=== PATIENT | male | born 1960 | race Two or more races ===

== ENCOUNTER 2017-10-24 13:51 | Emergency (ER) | payer MEDICARE, MEDICAID ==
[~2017-10-24] VITALS: Ht 172.7 cm; Wt 72.6 kg
[~2017-10-24 13:51] MED LIST: ACETTAB85 PO; ASPI-231 PO; B-CO-5 PO; CALC667T2 PO; CARV25TA PO
[2017-10-24 14:51] LABS: Basophils # (auto) 0 uL; Eosinophils # (auto) 0 uL; Lymphocytes # (auto) 0.5 uL; Mean Corpuscular Hgb Conc. 34.5 g/dL (32.0-36.0); Nucleated Red Blood Cells % 0.1 %
[2017-10-24 14:53] LABS: Basophils % (auto) 0.7 % (0.0-2.0); Eosinophils % (auto) 0.2 % (0.0-7.0); Hematocrit 47.2 % (41.0-53.0); Hemoglobin 16.3 g/dL (13.5-17.5); Lymphocytes % (auto) 7.3 % (10.0-50.0); Mean Corpuscular Hemoglobin 35.6 pg (28.0-32.0); Mean Corpuscular Volume 103.3 fL (80.0-100.0); Monocytes # (auto) 0.6 uL; Monocytes % (auto) 9.2 % (0.0-12.0); Neutrophils # (auto) 5.8 uL; Neutrophils % (auto) 82.6 % (37.0-80.0); Platelet Count (auto) 123 10^3/uL (140-450); Red Blood Cells 4.57 10^6/uL (4.5-5.90); White Blood Cell 7.1 10^3/uL (4.4-10.8)
[2017-10-24 15:13] LABS: Albumin 3.6 g/dL (3.4-5.0); BUN/Creatinine Ratio 4.8; Bilirubin, Total 0.7 mg/dL (0.2-1.0); Calcium 9.1 mg/dL (8.5-10.1); Potassium 4.9 mmol/L (3.5-5.1); Total Protein 8.5 g/dL (6.4-8.2)
[2017-10-24 18:37] VITALS: BP 103/51
[2017-10-25] MEDS ORDERED: DEXTROSE 50% SYRINGE 50 ML IV ONE (01:01)
== END 2017-10-24 20:34 | disposition home or self-care (01) ==
LOC: ER 13:51
DX: I12.0 Hypertensive chronic kidney disease with stage 5 chronic kidney disease or end stage renal disease (principal); N18.6 End stage renal disease; R79.89 Other specified abnormal findings of blood chemistry; Z99.2 Dependence on renal dialysis; Z79.899 Other long term (current) drug therapy; Z79.82 Long term (current) use of aspirin; Z90.49 Acquired absence of other specified parts of digestive tract
CPT/HCPCS: 36415; 71045; 74176; 80053; 82150; 83690; 83880; 84484; 85025; 93005

== ENCOUNTER 2018-12-19 05:22 | Inpatient (IN) | payer MEDICARE, MEDICAID ==
[~2018-12-19] VITALS: Ht 170.2 cm; Wt 70.7 kg
[~2018-12-19 05:22] MED LIST changes: +ACET-1603 PO; -ACETTAB85 PO
[2018-12-19 06:44] LABS: Basophils # (auto) 0.1 uL; Basophils % (auto) 1.2 % (0.0-2.0); Eosinophils # (auto) 0.2 uL; Eosinophils % (auto) 2.6 % (0.0-7.0); Hemoglobin 13.2 g/dL (13.5-17.5); Lymphocytes % (auto) 14.4 % (10.0-50.0); Mean Corpuscular Hemoglobin 30.1 pg (28.0-32.0); Mean Corpuscular Hgb Conc. 32.3 g/dL (32.0-36.0); Mean Corpuscular Volume 93.3 fL (80.0-100.0); Monocytes # (auto) 0.5 uL; Monocytes % (auto) 7.5 % (0.0-12.0); Neutrophils # (auto) 5.1 uL; Neutrophils % (auto) 74.3 % (37.0-80.0); Platelet Count (auto) 277 10^3/uL (140-450); Red Blood Cells 4.39 10^6/uL (4.5-5.90); Red Cell Distribution Width 15.3 % (11.8-14.3); White Blood Cell 6.9 10^3/uL (4.4-10.8)
[2018-12-19 06:58] LABS: Albumin 3.9 g/dL (3.4-5.0); Calcium 9.4 mg/dL (8.5-10.1); Potassium 5.3 mmol/L (3.5-5.1)
[2018-12-19 07:05] LABS: BUN/Creatinine Ratio 4.4; Bilirubin, Total 0.5 mg/dL (0.2-1.0); Total Protein 9.4 g/dL (6.4-8.2)
[2018-12-19] MEDS ORDERED: ACETAMINOPHEN 325 MG TAB PO ONE (07:15)
[2018-12-19] MEDS ORDERED: ACETAMINOPHEN 500 MG TAB PO PRN (12:15)
[2018-12-19] MEDS ORDERED: ALBUTEROL SULF 2.5 MG/0.5ML(0.5%) NEB SOLN NEB PRN (12:15)
[2018-12-19] MEDS ORDERED: MORPHINE SULF INJ 2 MG/ML SYRINGE 1ML IV PRN ×2 (12:15)
[2018-12-19] MEDS ORDERED: SODIUM ZIRCONIUM CYCL 10 GM PAK PO ONE (12:15)
[2018-12-19] MEDS ORDERED: NITROGLYCERIN 0.4 MG SL TAB SL PRN (12:15)
[2018-12-19] MEDS ORDERED: DOCUSATE SOD 100 MG CAP PO PRN (12:15)
[2018-12-19] MEDS ORDERED: IPRATROPIUM BROM 0.5 MG/2.5ML INH SOL NEB PRN (12:15)
[2018-12-19] MEDS ORDERED: ONDANSETRON HCL 4 MG/2 ML VIAL IV PRN (12:15)
[2018-12-19 13:41] VITALS: BP 147/108
[2018-12-19] MEDS ORDERED: LABETALOL HCL 5 MG/ML ML 20ML VIAL IV PRN (14:30)
[2018-12-19] MEDS ORDERED: LABETALOL HCL 5 MG/ML ML 20ML VIAL IV ONE (14:30)
--- NOTE | 2018-12-19 15:33 | NUR ---
PATIENT ARRIVED ON UNIT. TELE BOX #49 SR 90'S. PATIENT ORIENTED TO TELE UNIT, ROOM 277 BED A. THIS RN EDUCATED APPRENTICE/LINEMAN LIGHT, AND GAVE NEW GOWN, BATH SUPPLIES, AND ORAL CARE SUPPLIES. PATIENT VERBALIZED UNDERSTANDING FOR USE APPRENTICE/LINEMAN LIGHT. CARE BOARD UPDATED WITH PLAN OF CARE. RESPIRATIONS EVEN AND UNLABORED. VS WNL. WILL CONTINUE TO MONITOR.
[2018-12-19 16:11] VITALS: BP 126/87
[2018-12-19] MEDS ORDERED: CARV3.1240 PO (16:59)
[2018-12-19] MEDS ORDERED: SUCR5CHW PO (16:59)
[2018-12-19] MEDS ORDERED: ASPI325T4 PO (16:59)
[2018-12-19] MEDS ORDERED: PRO125RS PO (16:59)
[2018-12-19] MEDS ORDERED: AMOX250C3 PO (16:59)
[2018-12-19] MEDS ORDERED: ACET-1156 PO (16:59)
[2018-12-19] MEDS ORDERED: SILD50TA42 PO (16:59)
[2018-12-19] MEDS ORDERED: CLON0.2D6 PO (16:59)
[2018-12-19] MEDS ORDERED: TRAM50TA2 PO (16:59)
[2018-12-19] MEDS ORDERED: CLOP75TA41 PO (16:59)
[2018-12-19] MEDS ORDERED: OMEP20TA PO (16:59)
[2018-12-19] MEDS ORDERED: ALBUAER3 IN (16:59)
[2018-12-19] MEDS ORDERED: CINA30TA2 PO (16:59)
--- NOTE | 2018-12-19 17:02 | NUR ---
MED REC COMPLETE: EDUCATED PATIENT ON POLICY REGARDING BEDSIDE MEDICATIONS. PATIENT'S FAMILY TO TAKE MEDS HOME.
[2018-12-19] MEDS: SEVELAMER 800 MG TAB PO SCH (17:39)
--- NOTE | 2018-12-19 17:57 | NUR ---
PATIENT C/O HAVING DRY COUGH. REQUESTING ICE CHIPS. MRSA NARES SENT TO LAB.
--- NOTE | 2018-12-19 18:30 | NUR ---
CLOSING SHIFT NOTE: PATIENT RESTING IN BED. FALL PRECAUTIONS IN PLACE. PATIENT VERBALIZED UNDERSTANDING. CALL LIGHT WITHIN REACH, BED IN LOWEST LOCKED POSITION. WILL ENDORSE CARE TO NOC RN.
--- NOTE | 2018-12-19 19:02 | NUR ---
Respiratory note: ASSESSED PT FOR PRN MED NEB AT THIS TIME, PT DENIES SOB AT THIS TIME, NO RESP DISTRESS NOTED, NO TX INDICATED. PULSE OX 94% ON RA, HR 63, RR 22, BILATERAL BS CLEAR.
--- NOTE | 2018-12-19 19:16 | NUR ---
CARE ENDORSED TO REILLY CORREA.
--- NOTE | 2018-12-19 20:00 | NUR ---
Opening Shift Note Assumed care of patient, awake and alert. No S/S of distress/SOB or pain. Instructed on POC and to call for assist PRN, will continue to monitor for changes Q1hr and PRN.
[2018-12-19 21:31] VITALS: BP 147/101
[2018-12-19] MEDS: BENAZEPRIL HCL 10 MG TAB PO SCH (21:39)
[2018-12-19] MEDS: CARVEDILOL 3.125 MG TAB PO SCH (21:39)
[2018-12-20 05:40] VITALS: BP 137/95
[2018-12-20 05:54] LABS: Basophils # (auto) 0.1 uL; Basophils % (auto) 1.5 % (0.0-2.0); Eosinophils # (auto) 0.1 uL; Eosinophils % (auto) 2.3 % (0.0-7.0); Hematocrit 35.8 % (41.0-53.0); Hemoglobin 11.9 g/dL (13.5-17.5); Lymphocytes % (auto) 17.2 % (10.0-50.0); Mean Corpuscular Hemoglobin 30.6 pg (28.0-32.0); Mean Corpuscular Hgb Conc. 33.3 g/dL (32.0-36.0); Mean Corpuscular Volume 91.8 fL (80.0-100.0); Monocytes # (auto) 0.6 uL; Monocytes % (auto) 9.4 % (0.0-12.0); Neutrophils # (auto) 4.2 uL; Neutrophils % (auto) 69.6 % (37.0-80.0); Nucleated Red Blood Cells % 0.1 %; Platelet Count (auto) 245 10^3/uL (140-450); Red Cell Distribution Width 15.4 % (11.8-14.3)
[2018-12-20 06:18] LABS: BUN/Creatinine Ratio 4.7; Calcium 8.8 mg/dL (8.5-10.1); Potassium 4.8 mmol/L (3.5-5.1)
--- NOTE | 2018-12-20 06:25 | NUR ---
HOSPITALIST PAGED PATIENT HAS A CRITICAL CR. OF 11.9 THIS IS AN INCREASE FROM 10.6 PATIENT MISSED DIALYSIS YESTERDAY. PATIENT IS TO HAVE A NEPHRO CONSULT CALLED IN TODAY. WILL AWAIT CALL BACK OR ORDERS.
--- NOTE | 2018-12-20 06:51 | NUR ---
RECEIVED CALL BACK FROM HOSPITALIST HOSPITALIST MADE AWARE. HOSPITALIST WANTED TO ENSURE THAT NEPHRO CONSULT WAS CALLED IN TO SEE TODAY. NEPHRO CALLED IN AT [address] GONZALEZ. WILL ENDORSE TO VALENTE CORREA.
--- NOTE | 2018-12-20 07:10 | NUR ---
Opening Note Care of patient assumed from release manager nurse. Patient is alert and oriented x4. No signs of distress noted. Plan of care discussed with patient and he verbalizes understanding. Patient is eating breakfast comfortably. Bed in lowest position, side rails up x2, call light in reach. Will continue to monitor.
[2018-12-20] MEDS: SEVELAMER 800 MG TAB PO SCH ×3 (08:16→18:30)
[2018-12-20 09:00] VITALS: BP 131/91
[2018-12-20] MEDS: FAMOTIDINE 20 MG TAB PO SCH (09:43)
[2018-12-20] MEDS: CARVEDILOL 3.125 MG TAB PO SCH ×2 (09:43→21:33)
[2018-12-20] MEDS: BENAZEPRIL HCL 10 MG TAB PO SCH ×2 (09:44→21:33)
[2018-12-20] MEDS: AZITHROMYCIN 500MG/ 250ML 250 ML IV SCH (09:44)
[2018-12-20] MEDS: CLOPIDOGREL BISULFATE 75 MG TAB PO SCH (09:44)
[2018-12-20 13:00] VITALS: BP 133/76
[2018-12-20] MEDS ORDERED: [UNRECOGNIZED DRUG - CODE] PO (13:41)
--- NOTE | 2018-12-20 15:30 | NUR ---
Spoke with Service Desk Director/ Doris Patient added to schedule for left heart cath on 12/21/18 in the afternoon, patient is to be NPO after breakfast on 12/21.
--- NOTE | 2018-12-20 16:05 | NUR ---
Spoke with Dr. Westbrook Regarding patient being scheduled to have heart cath done tomorrow (12/21) after lunch and that dialysis will need to be performed after patient returns from procedure. Dr. Westbrook is aware and will notify muffle worker to complete dialysis in the late afternoon tomorrow.
[2018-12-20 17:00] VITALS: BP 154/100
[2018-12-20 17:25] LABS: INR 1.18 (0.9-1.15); Partial Thromboplastin Time 31.6 sec (23.64-32.05)
--- NOTE | 2018-12-20 18:43 | NUR ---
Patient Rounds Patient resting in bed, talking on the phone. No s/s of distress or SOB, no pain noted or reported at this time. Will endorse care to security shift manager RN.
--- NOTE | 2018-12-20 19:13 | NUR ---
Respiratory note: ASSESSMENT FOR PRN MED NEB TX. HR 100, SPO2 99% ON ROOM AIR, RR 17, BS DIMINISHED. PT AWARE TO HAVE RT PAGED IF MED NE B TX IS NEEDED. MED NEB TX NOT INDICATED AT THIS TIME, WILL CONTINUE TO MONITOR.
[2018-12-20 20:00] VITALS: BP 129/91
--- NOTE | 2018-12-20 20:30 | NUR ---
per bus monitor patient had an episode of PVC with bigemeny. Upon entering room patient is walking and coughing. Patient denies any symptoms of pain or SOB, Denies any other symptoms. VS B/P 129/91, O2 saturation 97% HR 101, RR 20. Addendum: 12/20/18 at 2057 by LETHA GOODWIN RN RN Patient has been running SR 101 after episode according to network operations technician.l
[2018-12-20] MEDS: HYDROcodone-ACET 5/325MG TAB PO PRN (21:34)
[2018-12-20 22:00] VITALS: BP 129/91
[2018-12-21] MEDS: HYDROcodone-ACET 5/325MG TAB PO PRN ×2 (03:56→18:42)
[2018-12-21 05:00] VITALS: BP 153/108
[2018-12-21] MEDS ORDERED: SODIUM CHL 0.9% 1000 ML BAG XX ONE (07:00)
--- NOTE | 2018-12-21 07:25 | NUR ---
Opening Shift Note Assumed care of patient, awake and alert. No S/S of distress/SOB or pain. Instructed on POC and to call for assist PRN, bed in locked and lowest position and call light within reach. Will continue to monitor for changes Q1hr and PRN.
--- NOTE | 2018-12-21 07:30 | NUR ---
ENDORSED CARE TO DAYSHIFT RN. ALL QUESTIONS AND CONCERNS ANSWERED
[2018-12-21 08:00] VITALS: BP 134/97
[2018-12-21] MEDS: SEVELAMER 800 MG TAB PO SCH ×3 (08:00→18:35)
[2018-12-21 09:00] VITALS: BP 134/97
[2018-12-21] MEDS: FAMOTIDINE 20 MG TAB PO SCH (09:45)
[2018-12-21] MEDS: ASPirin 81 mg TAB PO SCH (09:45)
[2018-12-21] MEDS: BENAZEPRIL HCL 10 MG TAB PO SCH ×2 (09:46→21:37)
[2018-12-21] MEDS: CARVEDILOL 3.125 MG TAB PO SCH ×2 (09:47→21:36)
[2018-12-21] MEDS: CLOPIDOGREL BISULFATE 75 MG TAB PO SCH (09:48)
[2018-12-21] MEDS: AZITHROMYCIN 500MG/ 250ML 250 ML IV SCH (09:48)
--- NOTE | 2018-12-21 11:26 | NUR ---
Dr. Cholo Thornton bedside with patient discussing plan of care.
--- NOTE | 2018-12-21 11:59 | NUR ---
Patient brought down to Side Panel Padder
--- NOTE | 2018-12-21 12:00 | NUR ---
Respiratory note: PATIENT TAKEN DOWN TO INVOICE MACHINE OPERATOR, UNABLE TO OBTAIN VITAL SIGNS. WILL TRY AGAIN LATER.
[2018-12-21] MEDS ORDERED: IOHEXOL 350 MG/ML 100ML IJ ONE ×2 (12:15→12:42)
[2018-12-21] MEDS ORDERED: LIDOCAINE 2%HCL (LOCAL ANESTH.) INJ 20ML MDV ONE (12:15)
--- NOTE | 2018-12-21 12:24 | NUR ---
Nutrition Assessment Notes please see attached link for complete assessment Est. Needs ABW 81 [id number] kcal (25-27 kcal/kgBW), 97-113 gms pro (1.2-1.4 gms/kgBW r/t HD). Will continue to monitor pertinent labs and reassess nutrient need prn Addendum: 12/21/18 at [address] Amended: Links added.
[2018-12-21] MEDS ORDERED: fentaNYL CITRATE 100 MCG/2 ML VL ONE (12:40)
[2018-12-21] MEDS ORDERED: SODIUM CHL 0.9% 0 ML ONE (12:40)
[2018-12-21] MEDS ORDERED: MIDAZOLAM HCL 1MG/1ML-2 ML VIAL ONE (12:40)
[2018-12-21] MEDS ORDERED: ANGIOMAX 250 MG VIAL IV ONE (12:40)
--- NOTE | 2018-12-21 14:18 | NUR ---
Patient returned from manager lab. Patient laying in bed, flat, R. groin bandage is clean, dry and intact. Vital signs 129/99, 90 bpm, 18 RR, 97.7 and 95% on 2 L. NC. Will continue to monitor patient.
[2018-12-21 14:22] VITALS: BP 129/99
--- NOTE | 2018-12-21 15:55 | NUR ---
Dr. Alamo bedside with patient.
--- NOTE | 2018-12-21 16:40 | NUR ---
Dialysis nurse in patient room dialyzing patient
[2018-12-21 16:58] VITALS: BP 130/95
--- NOTE | 2018-12-21 17:41 | NUR ---
assessment Per consult patient does not have a PCP. Tanya Jules has seen patient for PCP. Addendum: 12/21/18 at 1742 by Tanya Hampton Amended: Links added.
--- NOTE | 2018-12-21 19:25 | NUR ---
Opening Shift Note Assumed care of patient, awake and alert. No S/S of distress/SOB or pain. Dialysis nurse at bedside. per dialysis nurse 3L removed. B/P 147/97, HR 98. Instructed on POC and to call for assist PRN, will continue to monitor for changes Q1hr and PRN.
--- NOTE | 2018-12-21 19:30 | NUR ---
POST DIALYSIS WEIGHT POST DIALYSIS WEIGHT 76.3KG. PREDIALYSIS WEIGHT NOT AVAILABLE PER DIALYSIS NURSE SHE DID NOT GET PATIENT WEIGHT.
--- NOTE | 2018-12-21 20:00 | NUR ---
DRESSING IS CLEAN DRY AND INTACT. NO SIGNS OF REDNESS, AREA FEELS SOFT. PATIENT DENIES PAIN OR SOB. PATIENT TELEMONITOR CAME OFF, REAPPLIED TELEMONITOR.
--- NOTE | 2018-12-21 20:19 | NUR ---
TELEMONITOR TECH CALLED THAT PATIENT IS RUNNING TACHYCARDIA IN THE 130. PATIENT HAS HISTORY OF RUNNING TACHYCARDIA DR BORRERO AWARE. UPON ENTERING ROOM PATIENT IS LAUGHING AND TALKING TO FAMILY MEMBERS ON THE PHONE. DENIES DISTRESS/ SOB OR PAIN. WILL CONTINUE TO MONITOR PATIENT. BED IN LOW POSITION AND CALL LIGHT WITHIN REACH.
[2018-12-21 22:00] VITALS: BP 136/96
--- NOTE | 2018-12-21 23:33 | NUR ---
DRESSING IS C/D/I. AREA FEELS SOFT. RECENT VITALS 132/95 B/P, HR 108, RR 20, O2 SATURATION VIA ROOM AIR 99%. PATIENTS DENIES ANY PAIN OR SOB. PEDAL PULSES 2 PULSE BILATERAL. < 3 CAPILLARY REFILL.
--- NOTE | 2018-12-22 04:50 | NUR ---
dressing is clean dry and intact, mild bruising around area. area feels soft. 2 + pedal pulses. VS b/p 125/90 HR 115, 02 saturation via room air 96%, patient denies pain / sob.
[2018-12-22 05:40] VITALS: BP 123/87
--- NOTE | 2018-12-22 06:35 | NUR ---
dressing is clean dry and intact, mild bruising around area. area feels soft. 2 + pedal pulses.
--- NOTE | 2018-12-22 07:20 | NUR ---
REPORT GIVEN AND ENDORSED CARE TO DAYSHIFT RN. ALL QUESTIONS AND CONCERNS ANSWERED. INFORMED RN PATIENT DRESSING IS C/D/I, AREA IS SOFT.
--- NOTE | 2018-12-22 07:45 | NUR ---
Morning note Assumed care of patient, awake and alert. No S/S of distress/SOB or pain. Bed in lowest position, breaks locked, side rails up x2, call light with in reach. Instructed on POC and to call for assist PRN, will continue to monitor for changes Q1hr and PRN.
[2018-12-22] MEDS: SEVELAMER 800 MG TAB PO SCH ×3 (08:24→17:50)
[2018-12-22 09:00] VITALS: BP 139/89
[2018-12-22] MEDS: AZITHROMYCIN 500MG/ 250ML 250 ML IV SCH (10:00)
[2018-12-22] MEDS: CLOPIDOGREL BISULFATE 75 MG TAB PO SCH (10:30)
[2018-12-22] MEDS: FAMOTIDINE 20 MG TAB PO SCH (10:30)
[2018-12-22] MEDS: CARVEDILOL 3.125 MG TAB PO SCH ×2 (10:30→22:09)
[2018-12-22] MEDS: ASPirin 81 mg TAB PO SCH (10:31)
[2018-12-22] MEDS: BENAZEPRIL HCL 10 MG TAB PO SCH ×2 (10:31→22:10)
[2018-12-22 10:46] VITALS: BP 128/66
[2018-12-22] MEDS: HYDROcodone-ACET 5/325MG TAB PO PRN (12:13)
[2018-12-22 13:00] VITALS: BP 124/78
--- NOTE | 2018-12-22 15:20 | NUR ---
ASSESSED PT FOR THE REQUIREMENT OF MED NEB PRN TX. PT ON RA WITH CLEAR BS, SPO2 97%, HR 68, RR 16. NO DISTRESS NOTED. MED NEB NOT INDICATED. WILL CONTINUE TO MONITOR PT.
[2018-12-22 16:48] VITALS: BP 125/82
--- NOTE | 2018-12-22 19:15 | NUR ---
Endorsed care to NOC MADELINE Mcduffie. Patient respiration even and unlabored. No s/s of distress noted. Bed in lowest position breaks locked side rails up x2.
--- NOTE | 2018-12-22 19:40 | NUR ---
Opening Shift Note Assumed care of patient, awake and alert and oriented x4. No S/S of distress/SOB or pain. On room air and ambulatory. Dressing to Rt groin CDI. Bed in lowest locked position, side rails up x2, call light within reach. Instructed on POC and to call for assist PRN, will continue to monitor for changes Q1hr and PRN.
[2018-12-22 20:00] VITALS: BP 121/88
--- NOTE | 2018-12-22 20:40 | NUR ---
Respiratory note: PT ASSESSED FOR PRN MED NEB TX. HR 89, RR 14, SPO2 99% ON RA. NO SIGNS OF ANY RESPIRATORY DISTRESS NOTED. ADVISED PT TO CALL IF TX IS NEEDED. RT NAME AND PAGER NUMBER WRITTEN ON PT'S BOARD.
--- NOTE | 2018-12-23 07:30 | NUR ---
Opening Shift Note Assumed care of patient, awake and alert. No S/S of distress/SOB or pain. Instructed on POC and to call for assist PRN, Call light within, will continue to monitor for changes Q1hr and PRN.
[2018-12-23 08:00] VITALS: BP 127/78
[2018-12-23 09:00] VITALS: BP 127/78
--- NOTE | 2018-12-23 09:17 | NUR ---
AT BEDSIDE DR Florin HOFF AT BEDSIDE, DISCUSSING POC WITH PT, CONT CARE
[2018-12-23] MEDS: SEVELAMER 800 MG TAB PO SCH ×3 (09:18→17:28)
[2018-12-23] MEDS: ASPirin 81 mg TAB PO SCH (09:19)
[2018-12-23] MEDS: CLOPIDOGREL BISULFATE 75 MG TAB PO SCH (09:19)
[2018-12-23] MEDS: FAMOTIDINE 20 MG TAB PO SCH (09:19)
[2018-12-23] MEDS: BENAZEPRIL HCL 10 MG TAB PO SCH ×2 (09:20→22:19)
[2018-12-23] MEDS: CARVEDILOL 3.125 MG TAB PO SCH ×2 (09:20→22:18)
--- NOTE | 2018-12-23 09:38 | NUR ---
Respiratory note: PT ASSESSED FOR PRN MED NEB TX, NO TX DESIRED NOR INDICATED AT THIS TIME. PT DENIES SOB OR DIFF BREATHING, NO DISTRESS NOTED. HR 90 RR 18 SPO2 97% ON RA. PT AND RN AWARE TO HAVE RT PAGED IF NEEDED.
[2018-12-23] MEDS: AZITHROMYCIN 500MG/ 250ML 250 ML IV SCH (10:00)
[2018-12-23] MEDS: guaiFENesin 200 MG/10 ML UD GT PRN ×2 (10:22→15:51)
[2018-12-23 13:00] VITALS: BP 124/94
[2018-12-23 17:07] VITALS: BP 126/87
--- NOTE | 2018-12-23 17:38 | NUR ---
MD COKER (SWIMMING COACH) ESPERANZA RETURNED CALL, MADE OF AWARE OF PT C/O COUGH NOT RELIEVED BY ROBITUSSIN 200ML, NEW ORDERS RECEIVED FOR CXR, CALL PETE BACK WITH RESULTS FOR FURTHER ORDERS, CONT CARE
[2018-12-23] MEDS: HYDROcodone-ACET 5/325MG TAB PO PRN (17:41)
[2018-12-23] MEDS ORDERED: NITROGLYCERIN 0.2MG/HR TOPICAL PATCH TD ONE (18:45)
--- NOTE | 2018-12-23 18:50 | NUR ---
CXR RESULTS CALLED IN CALLED AND INFORMED (EXPRESSIVE MUSIC THERAPIST) ESPERANZA, NEW ORDERS RECEIVED FOR NITRO 0.2MG PATCH AND ROBITUSSIN WITH CODEINE 10ML Q6 HRS PRN, RBO, CONT CARE
[2018-12-23] MEDS: guaiFENesin-CODEINE Liq 5 ML UD PO PRN (19:13)
--- NOTE | 2018-12-23 19:40 | NUR ---
Opening Shift Note Assumed care of patient, awake, alert and oriented x4. On room air and ambulatory. No S/S of distress/SOB or pain. Bed in lowest locked position, side rails up x2, call light within reach. Instructed on POC and to call for assist PRN, will continue to monitor for changes Q1hr and PRN.
[2018-12-23 20:00] VITALS: BP 134/98
--- NOTE | 2018-12-23 20:10 | NUR ---
Respiratory note: PT ASSESSED FOR PRN MED NEB TX. HR 70, RR 18, SPO2 96% ON RA. NO SIGNS OF ANY RESPIRATORY DISTRESS NOTED. ADVISED PT TO CALL IF TX IS NEEDED. RT NAME AND PAGER NUMBER WRITTEN ON BOARD.
[2018-12-23 22:00] VITALS: BP 136/98
[2018-12-24] VITALS (7 sets, daily range): BP systolic 112–145; BP diastolic 68–96
[2018-12-24] MEDS: guaiFENesin-CODEINE Liq 5 ML UD PO PRN ×2 (05:20→17:14)
[2018-12-24] MEDS: HYDROcodone-ACET 5/325MG TAB PO PRN (05:36)
[2018-12-24] MEDS ORDERED: SODIUM CHL 0.9% 1000 ML BAG XX ONE (07:00)
[2018-12-24] MEDS ORDERED: LEVOTHYROXINE SODIUM 112 MCG TAB PO SCH (07:00)
--- NOTE | 2018-12-24 07:30 | NUR ---
Opening Shift Note Assumed care of patient, awake and alert. No S/S of distress/SOB or pain. Instructed on POC and to call for assist PRN, will continue to monitor for changes Q1hr and PRN. Fall risk per protocol in place.
[2018-12-24] MEDS: SEVELAMER 800 MG TAB PO SCH ×3 (08:00→17:15)
--- NOTE | 2018-12-24 09:01 | NUR ---
AICD Called microbiology lab analyst to check procedure time for patient however, they said patient was not on the list. I called Dr. Alamo to ask if there were any changes with the procedure. Dr. Alamo states, patient had refused procedure. Updated patient, Patient states "it could have been a miscommunication error and states he would like procedure this morning." Waiting for orders from Dr. Alamo.
--- NOTE | 2018-12-24 09:18 | NUR ---
Update on AICD Patient notified AICD will be done tomorrow per Dr. Alamo orders. Patient states understanding. Will advance patient to renal diet and will place him on NPO diet after midnight for procedure tomorrow.
--- NOTE | 2018-12-24 09:25 | NUR ---
Respiratory note: ASSESSED PT FOR PRN MEDNEB TX. HR 88, RR 18, POX 95% ON ROOM AIR. BREATH SOUNDS CLEAR THROUGHOUT. PT DENIES ANY SOB. NO S/S OF RESPIRATORY DISTRESS NOTED AT THIS TIME. MEDNEB TX NOT INDICATED. ADVISED PT TO CALL FOR RT IF NEEDED.
--- NOTE | 2018-12-24 09:27 | NUR ---
Dialysis senior electrical estimator Aldwin at bedside to begin Dialysis.
--- NOTE | 2018-12-24 09:40 | NUR ---
Dr. Jasmeet Alamo at Bedside, Notified patient AICD will be done tomorrow around 1300. Procedure was explained along with risks and benefits. Patient states understanding. . instructed this nurse to notify Tax Collection Coordinator for patient to be added to afternoon schedule.
[2018-12-24 09:57] LABS: INR 1.13 (0.9-1.15); Partial Thromboplastin Time 31.3 sec (23.64-32.05)
[2018-12-24] MEDS: CLOPIDOGREL BISULFATE 75 MG TAB PO SCH ×2 (10:00→17:16)
[2018-12-24] MEDS: CARVEDILOL 3.125 MG TAB PO SCH ×3 (10:00→21:03)
[2018-12-24] MEDS: BENAZEPRIL HCL 10 MG TAB PO SCH ×3 (10:00→21:03)
[2018-12-24] MEDS: FAMOTIDINE 20 MG TAB PO SCH ×2 (10:00→17:16)
[2018-12-24] MEDS: ASPirin 81 mg TAB PO SCH ×2 (10:00→17:15)
[2018-12-24] MEDS ORDERED: LISINOPRIL 20 MG TAB PO SCH (10:00)
--- NOTE | 2018-12-24 10:00 | NUR ---
DIALYSIS Dialysis nurse Alfredito given heparin [id number] Units vial to be administered per dialysis orders.
--- NOTE | 2018-12-24 11:15 | NUR ---
at Bedside Dr. Thornton at beside, discussed plan of care with patient. If procedure goes well tomorrow, then expected discharge day will be Monday per Dr. Thornton.
--- NOTE | 2018-12-24 12:17 | NUR ---
Nutrition Follow-up Notes: Wt.: 76.7 kg Pt was sleeping with no family by bedside HD going on. per records pt to have AICD tegan. per records pt s/p hearth cath. pt with no distress noted currently on renal std diet with > 75% x 5 per RN doc Est. Needs ABW 81 [id number] kcal (25-27 kcal/kgBW), 97-113 gms pro (1.2-1.4 gms/kgBW r/t HD). Will continue to monitor pertinent labs and reassess nutrient need prn Labs: BUN 56 H, CREAT 1.9 H, Skin: Edgar scale 23 low risk, ecchymosis on groin per gum worker. GI: Pt has no BM reported per gum worker. PES: Altered nutrition related lab values r/t current/chronic medical condition aeb elev RFT Decreased nutrient needs r/t adiposity aeb pt`s high BMI of 33.4 kgm2 Will continue to monitor PO intake, skin status, pertinent labs and weight trend. F/u in 3-5 days. Rec.: 1) refer to [employer] dietitian on DC. 2) continue current plan of care
--- NOTE | 2018-12-24 17:30 | NUR ---
FAMILY AT BEDSIDE NO DISTRESS NOTED AT THIS TIME, CONT CARE
--- NOTE | 2018-12-24 19:45 | NUR ---
RECEIVED PATIENT IN BED, AAOX4. NO DISTRESS NOTED. INTRODUCED MYSELF TO THE PATIENT. ORIENTATION GIVEN. MILD GENERALIZED WEAKNESS NOTED. DENIES ANY SOB. DENIES ANY PAIN WELL. POCS DISCUSSED WITH PATIENT AND SHOWED UNDERSTANDING. BED KEPT ON LOWEST POSITION. SIDE RAILS UP. CALL LIGHT/TABLE IN REACH. KEPT COMFORTABLE.
[2018-12-25] VITALS (7 sets, daily range): BP systolic 113–169; BP diastolic 57–92
--- NOTE | 2018-12-25 00:32 | NUR ---
Respiratory note: PT SEEN AND ASSESSED FOR PRN MED NEB TX AT 0032. TX NOT INDICATED AT THIS TIME. PT DISPLAYING NO SIGNS OF DISTRESS. PT WAS SLEEPING WHEN ENTERING THE ROOM. HR 89 RR 16 POX 97% ON ROOM AIR.
--- NOTE | 2018-12-25 01:00 | NUR ---
ATTEMPTED CHG BY KEY PUNCH TEACHER, BUT PATIENT GOT MAD AND HE SAID, THERE IS NO POINT OF GETTING THE CHG DONE IF THE SURGERY HAPPENS TOMORROW IN THE AFTERNOON. EXPLAINED TO PATIENT THAT WE DO THE NIGHT BEFORE AND FOUR HOURS BEFORE, BUT STILL REFUSED. NOTED.
--- NOTE | 2018-12-25 06:41 | NUR ---
ON BED, AWAKE. STABLE. NO DISTRESS NOTED. FOR MORE CARE AND MANAGEMENT.
[2018-12-25] MEDS: SEVELAMER 800 MG TAB PO SCH ×3 (08:00→17:34)
--- NOTE | 2018-12-25 08:00 | NUR ---
ASSUMED CARE OF PT. AAOX4, BREATHING EVEN, NONLABORED, S1, S2. FISTULA TO LEFT UA + THRILL, + BRUIT. IV TO RIGHT FA 22G SL. NPO PRIOR AICD. DENIED OF PAIN NOR ANY DISCOMFORT AT THIS TIME. BED LOCKED IN THE LOWEST POSITION, CALL LIGHT WITHIN EASY REACH, WILL CONTINUE CARE.
[2018-12-25] MEDS: BENAZEPRIL HCL 10 MG TAB PO SCH ×2 (09:41→21:15)
[2018-12-25] MEDS: FAMOTIDINE 20 MG TAB PO SCH (09:42)
[2018-12-25] MEDS: CARVEDILOL 3.125 MG TAB PO SCH ×2 (09:42→21:15)
[2018-12-25] MEDS: ASPirin 81 mg TAB PO SCH (09:45)
--- NOTE | 2018-12-25 10:26 | NUR ---
DR. HOFF AT BEDSIDE. POC DISCUSSED WITH PT. NEW ORDER OBTAINED BMP. WILL CARRY OUT ORDER.
[2018-12-25 11:32] LABS: BUN/Creatinine Ratio 3.9; Calcium 9.5 mg/dL (8.5-10.1); Potassium 4.5 mmol/L (3.5-5.1)
[2018-12-25] MEDS ORDERED: HEPARIN IN NS 1000Units/500mL 0 ML ONE (11:50)
[2018-12-25] MEDS ORDERED: LIDOCAINE 2%HCL (LOCAL ANESTH.) INJ 20ML MDV ONE ×2 (11:50→12:48)
--- NOTE | 2018-12-25 11:55 | NUR ---
PT OFF UNIT TO MANAGEMENT PLANNER FOR AICD VIA BED. VS WNL. NO ACUTE DISTRESS NOTED AT DEPARTURE.
[2018-12-25] MEDS ORDERED: VANCOMYCIN HCL 1000 MG VL ONE (12:04)
[2018-12-25] MEDS ORDERED: fentaNYL CITRATE 100 MCG/2 ML VL ONE ×2 (12:04→12:48)
[2018-12-25] MEDS ORDERED: ceFAZolin 1GM/50ML 50 ML IV ONE (12:04)
[2018-12-25] MEDS ORDERED: MIDAZOLAM HCL 1MG/1ML-2 ML VIAL ONE ×2 (12:04→12:48)
[2018-12-25] MEDS ORDERED: VANCOMYCIN 1GM/250ML 250 ML IV ONE (12:05)
[2018-12-25] MEDS ORDERED: FUROSEMIDE 20 MG/2 ML VIAL ONE (13:10)
[2018-12-25] MEDS ORDERED: GELATIN 1 SPONGE SIZE 50 TOP ONE ×2 (13:20→13:21)
[2018-12-25] MEDS ORDERED: GELATIN 1 SPONGE SIZE 100 TOP ONE (13:20)
--- NOTE | 2018-12-25 15:23 | NUR ---
PT BACK TO ROOM, S/P AICD, DRESSING TO LEFT UPPER CHEST CLEAN/DRY/INTACT, LEFT ARM IN SLING. PT IS EDUCATED NOT TO PULL OR REACH WITH LEFT ARM, NO ROLLING SIDE TO SIDE, VERBALIZED UNDERSTANDING. FAMILY AT BEDSIDE. VS: 98.2, 18, 117/92, 87, 95% ON RA. WILL CONTINUE TO MONITOR.
--- NOTE | 2018-12-25 16:05 | NUR ---
RESTING IN BED, DRESSING TO LEFT UPPER CHEST CLEAN/DRY/INTACT, NO BLEEDING NOTED. LEFT ARM IN SLING. ICE PACK TO LEFT UPPER CHEST. PT DENIED OF ANY DISCOMFORT AT THIS TIME. VS: 98.2, 94, 116/97, 18, 98% ON 2L VIA N/C 0. WILL CONTINUE TO MONITOR.
--- NOTE | 2018-12-25 19:45 | NUR ---
RECEIVED PATIENT IN BED, AAOX4. NO DISTRESS NOTED. INTRODUCED MYSELF TO THE PATIENT. ORIENTATION GIVEN. MILD GENERALIZED WEAKNESS NOTED. DENIES ANY SOB. DENIES ANY PAIN WELL. PATIENT HAS A LEFT ARM SLING. LEFT CHEST DRESSING NOTED WHICH IS ALL CLEAN, DRY AND INTACT. ICE PACK APPLIED ON THE INCISION. POCS DISCUSSED WITH PATIENT AND SHOWED UNDERSTANDING. BED KEPT ON LOWEST POSITION. SIDE RAILS UP. CALL LIGHT/TABLE IN REACH. KEPT COMFORTABLE.
[2018-12-25] MEDS: VANCOMYCIN 1GM/250ML 250 ML IV SCH (21:16)
[2018-12-25] MEDS: HYDROcodone-ACET 5/325MG TAB PO PRN (21:36)
[2018-12-26 04:57] VITALS: BP 132/94
--- NOTE | 2018-12-26 06:49 | NUR ---
ON BED, AWAKE. STABLE. NO DISTRESS NOTED. FOR MORE CARE AND MANAGEMENT.
--- NOTE | 2018-12-26 07:30 | NUR ---
Opening Shift Note RECEIVED REPORT FROM NOC RN. Assumed care of patient, awake and alert. No S/S of distress/SOB or pain. BED IN LOWEST, LOCKED POSITION WITH SIDERAILS UP x2 AND CALL LIGHT WITHIN REACH. Instructed on POC and to call for assist PRN, will continue to monitor for changes Q1hr and PRN.
[2018-12-26 09:00] VITALS: BP 125/94
[2018-12-26] MEDS: SEVELAMER 800 MG TAB PO SCH ×3 (09:01→18:12)
[2018-12-26] MEDS: BENAZEPRIL HCL 10 MG TAB PO SCH (10:00)
[2018-12-26] MEDS: CLOPIDOGREL BISULFATE 75 MG TAB PO SCH (10:00)
[2018-12-26] MEDS: CARVEDILOL 3.125 MG TAB PO SCH (10:00)
[2018-12-26] MEDS: ASPirin 81 mg TAB PO SCH (10:00)
[2018-12-26] MEDS: FAMOTIDINE 20 MG TAB PO SCH (10:00)
[2018-12-26] MEDS: VANCOMYCIN 1GM/250ML 250 ML IV SCH (10:00)
[2018-12-26 12:23] VITALS: BP 128/71
[2018-12-26 13:00] VITALS: BP 141/83
[2018-12-26 17:14] VITALS: BP 130/87
--- NOTE | 2018-12-26 18:00 | NUR ---
PATIENT LEFT FLOOR WITHOUT INFORMING STAFF. TELE BOX HAD ALREADY BEEN REMOVED AND SENT BACK TO ICU. IV REMAINED IN PLACE. [facility]S DEPARTMENT NOTIFIED BY LI CHANGE BOOTH ATTENDANT.
[2018-12-26 19:01] VITALS: BP 137/82
== END 2018-12-26 18:15 | disposition home or self-care (01) | DRG 222 ==
LOC: ER 05:22 → TELE 05:23 → TELE-WESTW 15:37
PROVIDERS: ADMIT Nurse Practitioner Acute Care; ATTEND Family Medicine
PROC: 4A023N7 Measurement of Cardiac Sampling and Pressure, Left Heart, Percutaneous Approach (ICD-10-PCS; 2018-12-21)
PROC: 5A1D70Z Performance of Urinary Filtration, Intermittent, Less than 6 Hours Per Day (ICD-10-PCS; 2018-12-21)
PROC: B2131ZZ Fluoroscopy of Multiple Coronary Artery Bypass Grafts using Low Osmolar Contrast (ICD-10-PCS; 2018-12-21)
PROC: B2181ZZ Fluoroscopy of Left Internal Mammary Bypass Graft using Low Osmolar Contrast (ICD-10-PCS; 2018-12-21)
PROC: B2151ZZ Fluoroscopy of Left Heart using Low Osmolar Contrast (ICD-10-PCS; 2018-12-21)
PROC: 5A1D70Z Performance of Urinary Filtration, Intermittent, Less than 6 Hours Per Day (ICD-10-PCS; 2018-12-24)
PROC: 0JH608Z Insertion of Defibrillator Generator into Chest Subcutaneous Tissue and Fascia, Open Approach (ICD-10-PCS; principal; 2018-12-25)
PROC: 02HK3KZ Insertion of Defibrillator Lead into Right Ventricle, Percutaneous Approach (ICD-10-PCS; 2018-12-25)
PROC: 02H63KZ Insertion of Defibrillator Lead into Right Atrium, Percutaneous Approach (ICD-10-PCS; 2018-12-25)
PROC: 5A1D70Z Performance of Urinary Filtration, Intermittent, Less than 6 Hours Per Day (ICD-10-PCS; 2018-12-26)
DX: I13.2 Hypertensive heart and chronic kidney disease with heart failure and with stage 5 chronic kidney disease, or end stage renal disease (principal); I50.43 Acute on chronic combined systolic (congestive) and diastolic (congestive) heart failure; N18.6 End stage renal disease; N25.81 Secondary hyperparathyroidism of renal origin; J20.9 Acute bronchitis, unspecified; E87.5 Hyperkalemia; I25.10 Atherosclerotic heart disease of native coronary artery without angina pectoris; R06.03 Acute respiratory distress; D63.8 Anemia in other chronic diseases classified elsewhere; I42.0 Dilated cardiomyopathy; Z79.02 Long term (current) use of antithrombotics/antiplatelets; Z79.899 Other long term (current) drug therapy; Z95.1 Presence of aortocoronary bypass graft; Z99.2 Dependence on renal dialysis; Z90.49 Acquired absence of other specified parts of digestive tract; Z79.82 Long term (current) use of aspirin
CPT/HCPCS: 33249; 36415; 71045; 80048; 80053; 83880; 84484; 85025; 85610; 85730; 87081; 90935; 93005; 93306; 93455; 96374; 99152; 99153; G0378; J0690; J1642; J2250

== ENCOUNTER 2019-01-02 15:58 | Inpatient (IN) | payer MEDICARE, MEDICAID ==
[~2019-01-02] VITALS: Ht 170.2 cm; Wt 75.0 kg
[~2019-01-02 15:58] MED LIST changes: +ACET-1156 PO; +ALBUAER3 IN; +AMOX250C3 PO; +CARV3.1240 PO; +CINA30TA2 PO; +CLON0.2D6 PO; +CLOP75TA41 PO; +OMEP20TA PO; +PRO125RS PO; +SILD50TA42 PO; +SUCR5CHW PO; +TRAM50TA2 PO; +[UNRECOGNIZED DRUG - CODE] PO
[2019-01-02 17:26] LABS: Basophils # (auto) 0.1 uL; Basophils % (auto) 1.8 % (0.0-2.0); Eosinophils # (auto) 0.1 uL; Eosinophils % (auto) 1.7 % (0.0-7.0); Hemoglobin 12.7 g/dL (13.5-17.5); Lymphocytes # (auto) 0.7 uL; Lymphocytes % (auto) 9.1 % (10.0-50.0); Mean Corpuscular Hemoglobin 30.1 pg (28.0-32.0); Mean Corpuscular Hgb Conc. 32.5 g/dL (32.0-36.0); Mean Corpuscular Volume 92.5 fL (80.0-100.0); Monocytes # (auto) 0.6 uL; Monocytes % (auto) 8.4 % (0.0-12.0); Neutrophils # (auto) 6.1 uL; Nucleated Red Blood Cells % 0.1 %; Platelet Count (auto) 304 10^3/uL (140-450); Red Blood Cells 4.21 10^6/uL (4.5-5.90); Red Cell Distribution Width 15.8 % (11.8-14.3); White Blood Cell 7.8 10^3/uL (4.4-10.8)
[2019-01-02 17:43] LABS: Alanine Aminotransferase < 6 U/L (16-61); Albumin 3.7 g/dL (3.4-5.0); Anion Gap 14 (5-15); Aspartate Aminotransferase 16 U/L (15-37); BUN/Creatinine Ratio 4.8; Blood Urea Nitrogen 49 mg/dL (7-18); Calcium 9.5 mg/dL (8.5-10.1); Carbon Dioxide 26 mmol/L (21-32); Chloride 92 mmol/L (98-107); GFR African American 7 mL/min; GFR Non-African American 6 mL/min; Glucose 90 mg/dL (74-106); Magnesium 2.6 mg/dL (1.6-2.6); Potassium 5.3 mmol/L (3.5-5.1); Sodium 132 mmol/L (136-145)
[2019-01-02 17:44] LABS: INR 1.16 (0.9-1.15)
[2019-01-02 17:47] LABS: Alkaline Phosphatase 99 U/L (45-117); Bilirubin, Total 0.7 mg/dL (0.2-1.0); Total Protein 8.7 g/dL (6.4-8.2)
[2019-01-02] MEDS ORDERED: FUROSEMIDE 40 MG/4 ML VIAL IV ONE (20:45)
[2019-01-02] MEDS ORDERED: TEMAZEPAM 15 MG CAP PO ONE (23:45)
[2019-01-03] MEDS ORDERED: cloNIDine HCL 0.1 MG TAB PO ONE (01:15)
[2019-01-03] MEDS ORDERED: ACETAMINOPHEN 325 MG TAB PO PRN (03:30)
[2019-01-03] MEDS ORDERED: cloNIDine HCL 0.1 MG TAB PO PRN (03:30)
[2019-01-03] MEDS ORDERED: TEMAZEPAM 15 MG CAP PO PRN (03:30)
[2019-01-03] MEDS ORDERED: DILTIAZEM HCL 25 MG/5 ML VIAL IV ONE (03:30)
[2019-01-03] MEDS ORDERED: ALBUTEROL SULF 2.5 MG/0.5ML(0.5%) NEB SOLN NEB PRN (03:30)
[2019-01-03] MEDS ORDERED: ONDANSETRON HCL 4 MG/2 ML VIAL IV PRN (03:30)
[2019-01-03] MEDS ORDERED: MORPHINE SULF INJ 2 MG/ML SYRINGE 1ML IV PRN (04:15)
[2019-01-03] MEDS ORDERED: NITROGLYCERIN 0.4 MG SL TAB SL PRN (04:15)
--- NOTE | 2019-01-03 07:49 | NUR ---
Opening Note Assumed pt care from [facility] nurse. Pt is a/ox4 with no s/s of distress or SOB. Pt is currently sitting upright in bed with a mild complaint of SOB. Discussed POC with pt; pt verbalized understanding. Safety measures maintained with call light within reach, bed in lowest position and side rails up. Will continue to monitor for changes q1hr and prn.
[2019-01-03] MEDS: CALCIUM ACETATE 667 MG CAP PO SCH ×3 (08:00→18:00)
--- NOTE | 2019-01-03 08:55 | NUR ---
Patient C/O Being NPO Pt is "frustrated" that he is NPO except medications. Explained to pt the reasoning for being NPO given his pending cardio consult and typical tests and procedures that come with the consultation. Pt still is frustrated but "understands". Will continue to monitor.
[2019-01-03 09:00] VITALS: BP 134/97
[2019-01-03] MEDS: CARVEDILOL 12.5 MG TAB PO SCH ×2 (09:23→21:32)
[2019-01-03] MEDS: CLOPIDOGREL BISULFATE 75 MG TAB PO SCH (09:23)
[2019-01-03] MEDS: PANTOPRAZOLE 40 MG TAB PO SCH (09:23)
[2019-01-03] MEDS ORDERED: ASPirin 81 mg TAB PO SCH (10:00)
[2019-01-03] MEDS ORDERED: SODIUM CHL 0.9% 1000 ML BAG XX ONE (10:30)
--- NOTE | 2019-01-03 11:32 | NUR ---
Dialysis at Bedside
[2019-01-03 13:00] VITALS: BP 105/79
[2019-01-03 15:26] VITALS: BP 118/81
--- NOTE | 2019-01-03 15:30 | NUR ---
Dialysis Complete ENDING BP IS 118/81 HR OF 93 BPM 2.4L REMOVED AND PATIENT TOLERATED WELL. WILL CONTINUE TO MONITOR.
[2019-01-03 17:00] VITALS: BP 118/76
--- NOTE | 2019-01-03 18:20 | NUR ---
PT CHECKED FOR PRN TX. PT DENIES SOB. TX IS NOT INDICATED. PT UNDERSTANDS TO PAGE IF TX IS NEEDED OR BECOMES SOB. HR 100 RR 16 POX 98% ON ROOM AIR. B/S CLEAR.
--- NOTE | 2019-01-03 19:00 | NUR ---
Opening Shift Note Assumed care of patient, awake and alert. No S/S of distress/SOB or pain. Instructed on POC and to call for assist PRN, will continue to monitor for changes Q1hr and PRN.
--- NOTE | 2019-01-03 20:35 | NUR ---
Patient had a run of V-Tach. STAT EKG was performed. Strip taken to hospitalist for review.
--- NOTE | 2019-01-03 21:00 | NUR ---
Strip reviewed. RN to continue to monitor and assess patient. Patient is currently asymptomatic with normal vitals and complaining of no pain or distress at this time.
--- NOTE | 2019-01-03 21:33 | NUR ---
Patient refused his 2200 Coreg d/t him stating his blood pressure is to low for him to take that medication and it will cause it to "bottom me out". RN will continue to assess and monitor patient.
[2019-01-03 22:00] VITALS: BP 103/78
[2019-01-04 05:00] VITALS: BP 127/77
--- NOTE | 2019-01-04 06:27 | NUR ---
RT NOTE: NO TX INDICATED AT THIS TIME. NO SIGNS OF RESPIRATORY DISTRESS. ON RA SPO2 99 HR 89 RR 14. LUNG SOUNDS CLEAR T/O. PT AWARE TO PAGE FOR RESPIRATORY IF SOB BEGINS. WILL CONTINUE TO MONITOR.
[2019-01-04 06:53] LABS: Basophils # (auto) 0.1 uL; Basophils % (auto) 2.1 % (0.0-2.0); Eosinophils # (auto) 0.3 uL; Eosinophils % (auto) 3.9 % (0.0-7.0); Hematocrit 38.4 % (41.0-53.0); Hemoglobin 12.4 g/dL (13.5-17.5); Lymphocytes # (auto) 1.1 uL; Mean Corpuscular Hemoglobin 30.1 pg (28.0-32.0); Mean Corpuscular Hgb Conc. 32.3 g/dL (32.0-36.0); Mean Corpuscular Volume 93.2 fL (80.0-100.0); Monocytes # (auto) 0.8 uL; Monocytes % (auto) 11.5 % (0.0-12.0); Neutrophils # (auto) 4.5 uL; Neutrophils % (auto) 66.5 % (37.0-80.0); Nucleated Red Blood Cells % 0.1 %; Platelet Count (auto) 303 10^3/uL (140-450); Red Blood Cells 4.12 10^6/uL (4.5-5.90); Red Cell Distribution Width 16.1 % (11.8-14.3); White Blood Cell 6.8 10^3/uL (4.4-10.8)
[2019-01-04] MEDS ORDERED: SODIUM CHL 0.9% 1000 ML BAG XX ONE (07:00)
[2019-01-04 07:12] LABS: Calcium 9.6 mg/dL (8.5-10.1); Potassium 4.4 mmol/L (3.5-5.1)
[2019-01-04 07:14] LABS: BUN/Creatinine Ratio 4.9
--- NOTE | 2019-01-04 07:30 | NUR ---
Dialysis at Bedside
--- NOTE | 2019-01-04 07:48 | NUR ---
Opening Note Assumed pt care from [facility] nurse. Pt is a/ox4 with no s/s of distress or SOB. Pt is currently sitting upright in bed with dialysis at bedside with no complaints. Discussed POC with pt; pt verbalized understanding. Safety measures maintained with call light within reach, bed in lowest position and side rails up. Will continue to monitor for changes q1hr and prn.
[2019-01-04] MEDS: CALCIUM ACETATE 667 MG CAP PO SCH ×2 (08:00→12:00)
[2019-01-04 09:00] VITALS: BP 141/99
[2019-01-04] MEDS: CARVEDILOL 12.5 MG TAB PO SCH (10:00)
[2019-01-04] MEDS ORDERED: ASPirin 81 mg TAB PO SCH (10:00)
--- NOTE | 2019-01-04 10:37 | NUR ---
Dialysis Complete plate painter apprentice reported a removal of 3L. BP is 144/98, HR of 94. To remove dressing in 4 hours. Will continue to monitor for changes q1hr and prn.
[2019-01-04 10:39] VITALS: BP 144/98
[2019-01-04] MEDS: PANTOPRAZOLE 40 MG TAB PO SCH (10:50)
[2019-01-04] MEDS: CLOPIDOGREL BISULFATE 75 MG TAB PO SCH (10:50)
[2019-01-04 13:07] VITALS: BP 141/99
--- NOTE | 2019-01-04 13:39 | NUR ---
IV D/C'ED IV TO PT'S R FA REMOVED FULLY INTACT. SITE IS ASYMPTOMATIC AND PT TOLERATED REMOVAL WELL. PRESSURE APPLIED TO SITE FOR 3 MINUTES WITH GAUZE AND THEN WRAPPED IN [place]. PT INSTRUCTED TO KEEP DRESSING ON FOR 30 MINUTES. PT VERBALIZED UNDERSTANDING.
--- NOTE | 2019-01-04 13:40 | NUR ---
TELEBOX 10 REMOVED AND SENT BACK TO ICU
--- NOTE | 2019-01-04 13:42 | NUR ---
PATIENT D/C'ED OFF UNIT PATIENT AMBULATED OFF UNIT WITH EDUCATION MATERIAL, BELONGINGS, FOLLOW UP APPOINTMENT INFORMATION AND ALL QUESTIONS ANSWERED. IV WAS DISCONTINUED AND TELEBOX WAS REMOVED AND SENT BACK TO ICU.
== END 2019-01-04 13:40 | disposition home or self-care (01) | DRG 280 ==
LOC: ER 15:58 → TELE 15:59 → TELE-EAST 01-03 05:01
PROVIDERS: ADMIT Nurse Practitioner; ATTEND Internal Medicine
PROC: 5A1D70Z Performance of Urinary Filtration, Intermittent, Less than 6 Hours Per Day (ICD-10-PCS; principal; 2019-01-03)
PROC: 5A1D70Z Performance of Urinary Filtration, Intermittent, Less than 6 Hours Per Day (ICD-10-PCS; 2019-01-04)
DX: I13.2 Hypertensive heart and chronic kidney disease with heart failure and with stage 5 chronic kidney disease, or end stage renal disease (principal); I21.A1 Myocardial infarction type 2; I50.23 Acute on chronic systolic (congestive) heart failure; N18.6 End stage renal disease; J96.00 Acute respiratory failure, unspecified whether with hypoxia or hypercapnia; E87.1 Hypo-osmolality and hyponatremia; I42.9 Cardiomyopathy, unspecified; E87.5 Hyperkalemia; I25.10 Atherosclerotic heart disease of native coronary artery without angina pectoris; Z99.2 Dependence on renal dialysis; Z95.1 Presence of aortocoronary bypass graft; Z91.15 Patient's noncompliance with renal dialysis; I25.2 Old myocardial infarction; Z95.810 Presence of automatic (implantable) cardiac defibrillator; Z95.2 Presence of prosthetic heart valve
CPT/HCPCS: 36415; 71045; 71046; 80048; 80053; 83735; 83880; 84484; 85025; 85610; 85730; 87081; 90935; 93005; 94761; G0378; J1642

== ENCOUNTER → 2019-01-18 | Outpatient (CLI) | payer MEDICARE, MEDICAID ==
[~2019-01-18] VITALS: Ht 170.2 cm; Wt 74.8 kg
[~2019-01-18] MED LIST changes: -ALBUAER3 IN; -AMOX250C3 PO; -ASPI-231 PO; -CARV25TA PO; -CLON0.2D6 PO; -SILD50TA42 PO
== END | disposition home or self-care (01) ==
LOC: Rad HDHVI 10:06
PROVIDERS: ATTEND Internal Medicine Cardiovascular Disease
DX: R06.02 Shortness of breath (principal); I25.2 Old myocardial infarction; I12.9 Hypertensive chronic kidney disease with stage 1 through stage 4 chronic kidney disease, or unspecified chronic kidney disease; N18.6 End stage renal disease; Z95.0 Presence of cardiac pacemaker; Z90.49 Acquired absence of other specified parts of digestive tract; Z95.1 Presence of aortocoronary bypass graft
CPT/HCPCS: 78452; 93017; 96374; A9500

== ENCOUNTER → 2019-02-01 | Outpatient (CLI) | payer MEDICARE, MEDICAID | END | disposition home or self-care (01) | LOC: Rad HDHVI 12:51 | PROVIDERS: ATTEND Internal Medicine Cardiovascular Disease | DX: I51.7 Cardiomegaly (principal); I10 Essential (primary) hypertension; I42.0 Dilated cardiomyopathy | CPT/HCPCS: 93306 ==

== ENCOUNTER → 2019-02-06 | Outpatient (CLI) | payer MEDICARE, MEDICAID ==
[2019-02-06 07:48] LABS: Basophils # (auto) 0.1 uL; Basophils % (auto) 0.9 % (0.0-2.0); Eosinophils # (auto) 0 uL; Eosinophils % (auto) 0.6 % (0.0-7.0); Hematocrit 39.4 % (41.0-53.0); Hemoglobin 12.9 g/dL (13.5-17.5); Lymphocytes # (auto) 0.7 uL; Lymphocytes % (auto) 9.2 % (10.0-50.0); Mean Corpuscular Hemoglobin 30.1 pg (28.0-32.0); Mean Corpuscular Hgb Conc. 32.8 g/dL (32.0-36.0); Mean Corpuscular Volume 91.8 fL (80.0-100.0); Monocytes # (auto) 0.6 uL; Monocytes % (auto) 8.5 % (0.0-12.0); Neutrophils # (auto) 5.8 uL; Neutrophils % (auto) 80.8 % (37.0-80.0); Platelet Count (auto) 281 10^3/uL (140-450); Red Blood Cells 4.29 10^6/uL (4.5-5.90); Red Cell Distribution Width 15.6 % (11.8-14.3); White Blood Cell 7.2 10^3/uL (4.4-10.8)
[2019-02-06 08:27] LABS: Albumin 3.3 g/dL (3.4-5.0); Calcium 10.7 mg/dL (8.5-10.1); Potassium 3.9 mmol/L (3.5-5.1)
[2019-02-06 08:32] LABS: BUN/Creatinine Ratio 3.1; Bilirubin, Total 0.5 mg/dL (0.2-1.0)
== END | disposition home or self-care (01) ==
LOC: LAB 07:30
PROVIDERS: ATTEND Nurse Practitioner
DX: E78.5 Hyperlipidemia, unspecified (principal)
CPT/HCPCS: 36415; 80053; 80061; 84443; 85025